=== PATIENT | male | born 1965 | race African-American/Black ===

== ENCOUNTER 2016-07-22 11:41 | Emergency (ER) | payer SELFPAY ==
[~2016-07-22] VITALS: Ht 167.6 cm; Wt 90.0 kg
[~2016-07-22 11:41] MED LIST: BACT800T5 PO; DICY1TAB26 PO; LOMO PO; PROM25SU8 PO; Z.0.NO CURRENT MEDS
[2016-07-22 11:42] VITALS: BP 125/75; PULSE 98; RESP 16; TEMP 98.1; O2SAT 99
--- NOTE | 2016-07-22 11:44 | PD ---
Physical Exam Time Seen by Provider: 11:43 Narrative 51 y/o male presents with 3 days of dizziness, cough, cp when he coughs, generalized weakness. Vital signs reviewed. Seen at triage desk. Awaiting bed placement. Data Data Last Documented VS Vital Signs Date Time Temp Pulse Resp B/P Pulse Ox O2 Delivery O2 Flow Rate FiO2 07/22/16 11:42 98.1 98 16 125/75 99 MDM Medical Record Reviewed: Yes Supervised Visit with LILIANE: Alvarez Paz July 22, 2016 11:44
[2016-07-22] MEDS ORDERED: MUCI30TA2 PO (13:31)
--- NOTE | 2016-07-22 14:12 | PD ---
HPI Chief Complaint: Cold / Flu Symptoms Time Seen by Provider: 13:30 Travel History International Travel<30 days: No Contact w/Intl Traveler<30days: No Traveled to known affect area: No History of Present Illness HPI Patient is a 51-year-old male presenting to emergency for evaluation of 4 days of cough with pleuritic chest pain. Patient's head nasal drainage, he denies any fevers, nausea, vomiting, abdominal pain, headache. He reports diarrhea, he states is gone once today. Patient is a smoker. PFSH Past Medical History Bipolar Disorder: Yes Anxiety: Yes Depression: Yes Cardiovascular Problems: Yes (MURMUR) Past Surgical History Other Surgery: Yes (ARTHROSCOPIC KNEE SURGERY 1991) Social History Alcohol Use: No Tobacco Use: Yes Substance Use: No Allergies-Medications (Allergen,Severity, Reaction): Coded Allergies: No Known Allergies (Verified , 07/22/16) Reported Meds & Prescriptions Reported Meds & Active Scripts Active Reported Mucinex DM (Dextromethorphan-Guaifenesin) 30-600 Mg Tab 2 Tab PO BID PRN Review of Systems Except as stated in HPI: all other systems reviewed are Neg General / Constitutional: No: Fever, Chills HENT: Positive: Congestion, No: Headaches Cardiovascular: No: Chest Pain or Discomfort Respiratory: Positive: Cough, Pleuritic Pain, No: Shortness of Breath Gastrointestinal: Positive: Diarrhea, No: Nausea, Vomiting, Abdominal Pain Genitourinary: No: Dysuria Neurologic: Positive: Dizziness Physical Exam Narrative GENERAL: Well-developed, well-nourished, alert gentleman. Resting comfortably in no acute distress. SKIN: Focused skin assessment warm/dry. HEAD: Atraumatic. Normocephalic. EYES: Pupils equal and round. No scleral icterus. No injection or drainage. ENT: No nasal bleeding or discharge. Mucous membranes pink and moist. Cobblestone appearance to posterior pharynx NECK: Trachea midline. No JVD. CARDIOVASCULAR: Regular rate and rhythm. No murmur appreciated. RESPIRATORY: No accessory muscle use. Clear to auscultation. Breath sounds equal bilaterally. GASTROINTESTINAL: Abdomen soft, non-tender, nondistended. Hepatic and splenic margins not palpable. MUSCULOSKELETAL: No obvious deformities. No clubbing. No cyanosis. No edema. NEUROLOGICAL: Awake and alert. No obvious cranial nerve deficits. Motor grossly within normal limits. Normal speech. PSYCHIATRIC: Appropriate mood and affect; insight and judgment normal. Data Data Last Documented VS Vital Signs Date Time Temp Pulse Resp B/P Pulse Ox O2 Delivery O2 Flow Rate FiO2 07/22/16 11:42 98.1 98 16 125/75 99 Orders Chest, Pa & Lat (07/22/16 ) [facility] Medical Decision Making Medical Screen Exam Complete: Yes Emergency Medical Condition: Yes Interpretation(s) Last Impressions Chest X-Ray 07/22/16 0000 Signed Impressions: Service Date/Time: Friday, July 22, 2016 14:11 - CONCLUSION: No acute disease. Oliver Wright MD Vital Signs Date Time Temp Pulse Resp B/P Pulse Ox O2 Delivery O2 Flow Rate FiO2 07/22/16 11:42 98.1 98 16 125/75 99 Differential Diagnosis Bronchitis versus pneumonia versus viral syndrome versus upper respiratory infection versus other Narrative Course Patient is a 51-year-old male presenting to emergency department evaluation of cough and pleuritic pain associated with the coughing. Patient's vital signs are stable, chest x-ray ordered and pending. Patient ambulatory in the emergency department. Patient's vital signs are stable, chest x-ray shows no acute disease. Patient be given prescriptions for azithromycin, Tessalon Perles, and ibuprofen. He is encouraged to follow-up with his primary doctor. He was encouraged to return to emergency department for any new or worsening symptoms. Patient verbalized understanding of discharge instructions. Patient is stable for discharge. Additionally patient was advised to avoid cigarette smoking. Diagnosis Primary Impression: Acute bronchitis Qualified Code: J20.9 - Acute bronchitis, unspecified organism Referrals: [facility] Primary Care Physician Patient Instructions: Acute Bronchitis (ED), General Instructions Additional Instructions: Follow-up with your primary doctor Complete full course of antibiotics as prescribed Avoid tobacco use Returned to emergency department for any new or worsening symptoms Med/Other Pt SpecificInfo: Prescription(s) given Scripts Ibuprofen 800 Mg [id number] Mg PO Q6HR PRN (PAIN) #40 TAB Ref 0 Prov:Maritza Babin 07/22/16 Benzonatate (Tessalon Perles)100 Mg [id number] Mg PO TID PRN (COUGH) 3 Days Ref 0 Prov:Maritza Babin 07/22/16 Azithromycin 250 Mg [id number] Mg PO DIRECTED #6 TAB Ref 0 Take 2 tabs (500 mg) on day 1 then 1 tab daily x 4 days. Prov:Maritza Babin 07/22/16 Disposition: 01 DISCHARGE HOME Condition: Stable Maritza Babin July 22, 2016 14:12
--- NOTE | 2016-07-22 14:56 | RADRPT ---
EXAM DATE/TIME: 07/22/2016 14:11 [facility] COMPARISON: No previous studies available for comparison. INDICATIONS : Cough and shortness of breath. MEDICAL HISTORY : None. SURGICAL HISTORY : None. ENCOUNTER: Initial ACUITY: 4 - 6 days PAIN SCORE: 8/10 LOCATION: Bilateral chest FINDINGS: PA and lateral views of the chest demonstrate the lungs to be symmetrically aerated without evidence of mass, infiltrate or effusion. The cardiomediastinal contours are unremarkable. Osseous structure s are intact. CONCLUSION: No acute disease. Oliver Wright MD on July 22, 2016 at 14:54 Board Certified Radiologist. This report was verified electronically.
[2016-07-22] MEDS ORDERED: IBUP800T23 PO (15:30)
[2016-07-22] MEDS ORDERED: BENZ100 PO (15:30)
[2016-07-22] MEDS ORDERED: AZIT250T3 PO (15:30)
== END 2016-07-22 15:52 | disposition home or self-care (01) ==
LOC: NEPD 11:41
DX: J20.9 Acute bronchitis, unspecified (principal); F17.210 Nicotine dependence, cigarettes, uncomplicated
CPT/HCPCS: 71020; 99284

== ENCOUNTER 2016-09-10 21:15 | Emergency (ER) | payer SELFPAY ==
[~2016-09-10 21:15] MED LIST changes: +AZIT250T3 PO; -BACT800T5 PO; +BENZ100 PO; -DICY1TAB26 PO; +IBUP800T23 PO; -LOMO PO; +MUCI30TA2 PO; -PROM25SU8 PO; -Z.0.NO CURRENT MEDS
[2016-09-10 21:17] VITALS: BP 146/92; PULSE 98; RESP 16; TEMP 98.9; O2SAT 97
[2016-09-10] MEDS ORDERED: SODIUM CHLOR 0.9% 1000 ML INJ 1,000 ML IV SCH (21:50)
--- NOTE | 2016-09-10 21:55 | PD ---
HPI Chief Complaint: GI Complaint Time Seen by Provider: 21:46 Travel History International Travel<30 days: No Contact w/Intl Traveler<30days: No Traveled to known affect area: No History of Present Illness HPI 51-year-old male here for evaluation of abdominal pain and nausea. Patient reports that the symptoms have been going on for last couple of months, worse today. Abdominal pain is mainly epigastric and periumbilical, described as sharp/pressure, moderate He states that he becomes nauseous and dry heaves without vomiting. No diarrhea. No history of abdominal surgeries. No urinary symptoms. No chest pain or dyspnea. PFSH Past Medical History Bipolar Disorder: Yes Anxiety: Yes Depression: Yes Cardiovascular Problems: Yes (MURMUR) Past Surgical History Other Surgery: Yes (ARTHROSCOPIC KNEE SURGERY 1991) Social History Alcohol Use: No Tobacco Use: Yes Substance Use: No Allergies-Medications (Allergen,Severity, Reaction): Coded Allergies: No Known Allergies (Verified , 09/10/16) Reported Meds & Prescriptions Reported Meds & Active Scripts Active Ibuprofen 800 Mg Tab 800 Mg PO Q6HR PRN Tessalon Perles (Benzonatate) 100 Mg Cap 200 Mg PO TID PRN 3 Days Azithromycin 250 Mg Tab 250 Mg PO DIRECTED Take 2 tabs (500 mg) on day 1 then 1 tab daily x 4 days. Reported Mucinex DM (Dextromethorphan-Guaifenesin) 30-600 Mg Tab 2 Tab PO BID PRN Review of Systems Except as stated in HPI: all other systems reviewed are Neg Physical Exam Narrative GENERAL: Well-developed, well-nourished, comfortably watching TV, no acute distress. SKIN: Focused skin assessment warm/dry. HEAD: Atraumatic. Normocephalic. EYES: Pupils equal and round. No scleral icterus. No injection or drainage. ENT: Mucous membranes pink and moist. NECK: Trachea midline. No JVD. CARDIOVASCULAR: Regular rate and rhythm. RESPIRATORY: No accessory muscle use. Clear to auscultation. Breath sounds equal bilaterally. GASTROINTESTINAL: Abdomen soft, nondistended. Mild periumbilical and epigastric tenderness without peritoneal signs. Normal bowel sounds. No hernias. MUSCULOSKELETAL: No obvious deformities. No clubbing. No cyanosis. No edema. NEUROLOGICAL: Awake and alert. No obvious cranial nerve deficits. Motor grossly within normal limits. Normal speech. PSYCHIATRIC: Appropriate mood and affect; insight and judgment normal. Data Data Last Documented VS Vital Signs Date Time Temp Pulse Resp B/P Pulse Ox O2 Delivery O2 Flow Rate FiO2 09/10/16:17 98.9 98 16 146/92 97 Room Air Orders Complete Blood Count With Diff (09/10/16 21:50) Comprehensive Metabolic Panel (09/10/16 21:50) Lipase (09/10/16 21:50) Ct Abd/Pel W Iv Contrast(Rout) (09/10/16 21:50) Iv Access Insert/Monitor (09/10/16 21:50) Ecg Monitoring (09/10/16 21:50) Oximetry (09/10/16 21:50) Ondansetron Inj (Zofran Inj) (09/10/16 22:00) Pantoprazole Inj (Protonix Inj) (09/10/16 22:00) Sodium Chlor 0.9% 1000 Ml Inj (Ns 1000 M (09/10/16 21:50) Sodium Chloride 0.9% Flush (Ns Flush) (09/10/16 22:00) Electrocardiogram (09/10/16 21:50) Al-Mag Hy-Si 40-40-4 Mg/Ml Liq (Mag-Al P (09/10/16 22:00) Lidocaine 2% Viscous (Xylocaine 2% Visco (09/10/16 22:00) Iohexol 350 Inj (Omnipaque 350 Inj) (09/10/16 23:46) Ketorolac Inj (Toradol Inj) (09/11/16 00:00) Labs Laboratory Tests Test 09/10/16 22:20 White Blood Count 8.6 TH/MM3 Red Blood Count 4.33 MIL/MM3 Hemoglobin 13.4 GM/DL Hematocrit 38.0 % Mean Corpuscular Volume 87.9 FL Mean Corpuscular Hemoglobin 31.0 PG Mean Corpuscular Hemoglobin 35.2 % Concent Red Cell Distribution Width 13.4 % Platelet Count 286 TH/MM3 Mean Platelet Volume 7.2 FL Neutrophils (%) (Auto) 58.7 % Lymphocytes (%) (Auto) 31.6 % Monocytes (%) (Auto) 7.2 % Eosinophils (%) (Auto) 1.8 % Basophils (%) (Auto) 0.7 % Neutrophils # (Auto) 5.1 TH/MM3 Lymphocytes # (Auto) 2.7 TH/MM3 Monocytes # (Auto) 0.6 TH/MM3 Eosinophils # (Auto) 0.2 TH/MM3 Basophils # (Auto) 0.1 TH/MM3 CBC Comment DIFF FINAL Differential Comment Sodium Level 142 MEQ/L Potassium Level 3.5 MEQ/L Chloride Level 107 MEQ/L Carbon Dioxide Level 23.3 MEQ/L Anion Gap 12 MEQ/L Blood Urea Nitrogen 15 MG/DL Creatinine 1.16 MG/DL Estimat Glomerular Filtration 80 ML/MIN Rate Random Glucose 92 MG/DL Calcium Level 8.9 MG/DL Total Bilirubin 0.3 MG/DL Aspartate Amino Transf 26 U/L (AST/SGOT) Alanine Aminotransferase 43 U/L (ALT/SGPT) Alkaline Phosphatase 74 U/L Total Protein 7.8 GM/DL Albumin 3.9 GM/DL Lipase 125 U/L MDM Medical Decision Making Medical Screen Exam Complete: Yes Emergency Medical Condition: Yes Medical Record Reviewed: Yes Differential Diagnosis Gastritis, peptic ulcer disease, pancreatitis, hepatobiliary disease, colitis, appendicitis, Narrative Course Initial vital signs show heart rate 90, blood pressure 146/92, pulse ox 97% on room air, oral temp of 98.9F. CBC is unremarkable. CMP is unremarkable. Lipase is 125. CT abdomen pelvis: CONCLUSION: 1. There is wall thickening throughout the colon which can be seen with colitis. 2. Diverticulosis. 3. Numerous subcentimeter hepatic low densities and renal low densities likely benign. 4. Stable left adrenal lesion likely benign adenoma. Patient was made aware of all findings. He is resting comfortably. Tenderness is mainly epigastric. There are no peritoneal signs on exam. He was provided a copy of his CT abdomen pelvis report. He will be started on Cipro and Flagyl. He is stable for discharge home with outpatient follow-up. I will given the name of the customer care specialist health professional with whom to follow-up with this week. He states that he is from [place] and recently moved here and does not have insurance or a local physician. I will give him the information to the [facility] where he can also follow-up with as an outpatient. Diagnosis Primary Impression: Colitis Referrals: Sue Hooks MD 3 days [facility] 3 days Primary Care Physician 3 days Additional Instructions: Follow-up with a primary care physician this week. Follow-up with gastric urologist Dr. Hooks or a customer care specialist of your choice this week. Take antibiotic as prescribed. Return to the emergency department for worsening symptoms or any other concerns. Scripts Hydrocodone-Acetaminophen (Lortab)5-325 Mg Tab1 Tab PO Q6H PRN (PAIN) #15 TAB Ref 0 Prov:Gerald Crews MD 09/11/16 Metronidazole (Flagyl)500 Mg [id number] Mg PO BID 10 Days Ref 0 Prov:Gerald Crews MD 09/11/16 Ciprofloxacin (Cipro)500 Mg [id number] Mg PO BID 10 Days Ref 0 Prov:Gerald Crews MD 09/11/16 Disposition: 01 DISCHARGE HOME Condition: Stable Gerald Crews MD Sep 10, 2016 21:55
[2016-09-10] MEDS ORDERED: ONDANSETRON HCL 4 MG/2 ML VIAL IVP ONE (22:00)
[2016-09-10] MEDS ORDERED: SODIUM CHLORIDE 0.9% FLUSH 10 ML FLUSH IV FLUSH PRN (22:00)
[2016-09-10] MEDS ORDERED: LIDOCAINE VISCOUS 2% SOLN 15 ML UDC PO ONE (22:00)
[2016-09-10] MEDS ORDERED: ALUMINUM/MAGNESIUM/SIMETH 30 ML CUP PO ONE (22:00)
[2016-09-10] MEDS ORDERED: PANTOPRAZOLE SODIUM 40 MG VIAL IVP ONE (22:00)
[2016-09-10 22:36] LABS: AUTOMATED NEUTROPHIL # 5.1 TH/MM3 (1.8-7.7); BASOPHIL # 0.1 TH/MM3 (0-0.2); BASOPHIL % 0.7 % (0.0-2.0); EOSINOPHIL # 0.2 TH/MM3 (0-0.4); EOSINOPHIL % 1.8 % (0.0-4.0); HEMO FLAGS DIFF FINAL; LYMPH % 31.6 % (9.0-44.0); LYMPHOCYTE # 2.7 TH/MM3 (1.0-4.8); MEAN CELL VOLUME 87.9 FL (80.0-100.0); MEAN CORPUSCULAR HGB CONC 35.2 % (32.0-36.0); MONO % 7.2 % (0.0-8.0); NEUT % 58.7 % (16.0-70.0); PLATELET COUNT 286 TH/MM3 (150-450); RED BLOOD COUNT 4.33 MIL/MM3 (4.50-5.90); RED CELL DISTRIBUTION WIDTH 13.4 % (11.6-17.2); WHITE BLOOD COUNT 8.6 TH/MM3 (4.0-11.0)
[2016-09-10 22:46] LABS: ALT (GPT) 43 U/L (12-78)
[2016-09-10 22:49] LABS: ALKALINE PHOSPHATASE 74 U/L (45-117); TOTAL BILIRUBIN ADULT 0.3 MG/DL (0.2-1.0)
[2016-09-10 22:52] LABS: ANION GAP 12 MEQ/L (5-15); AST (GOT) 26 U/L (15-37); BICARBONATE 23.3 MEQ/L (21.0-32.0); BLOOD UREA NITROGEN 15 MG/DL (7-18); CHLORIDE 107 MEQ/L (98-107); GLOMERULAR FILTRATION RATE 80 ML/MIN (>89); POTASSIUM 3.5 MEQ/L (3.5-5.1); SODIUM (NA) 142 MEQ/L (136-145)
[2016-09-10 23:45] VITALS: RESP 20; O2SAT 98
[2016-09-10] MEDS ORDERED: IOHEXOL 350 MG/ML 10 ML VIAL (for RAD DIAG) IV ONE (23:46)
--- NOTE | 2016-09-10 23:53 | RADRPT ---
EXAM DATE/TIME: 09/10/2016 23:33 [facility] COMPARISON: CT ABDOMEN & PELVIS W CONTRAST, February 09, 2015, 17:05. INDICATIONS : Upper quadrant pain with nausea, and diarrhea. IV CONTRAST: 90 cc Omnipaque 350 (iohexol) IV ORAL CONTRAST: No oral contrast ingested. RADIATION DOSE: 10.70 CTDIvol (mGy) MEDICAL HISTORY : None SURGICAL HISTORY : Umbilical hernia repair. ENCOUNTER: Initial ACUITY: 2 months PAIN SCALE: 1/10 LOCATION: upper quadrant TECHNIQUE: Volumetric scanning of the abdomen and pelvis was performed. Using automated exposure control and ad justment of the mA and/or kV according to patient size, radiation dose was kept as low as reasonably achievable to obtain optimal diagnostic quality images. DICOM format image data is available electro nically for review and comparison. FINDINGS: LOWER LUNGS: The visualized lower lungs are clear. LIVER: Homogeneous density without lesion. There is no dilation of the biliary tree. No calcified gallston es. Multiple subcentimeter low densities. SPLEEN: Normal size without lesion. PANCREAS: Within normal limits. KIDNEYS: Normal in size and shape. There is no mass, stone or hydronephrosis. Subcentimeter low densities. ADRENAL GLANDS: Right adrenal gland within normal limits. Left adrenal lesion is unchanged. VASCULAR: There is no aortic aneurysm. BOWEL/MESENTERY: There is wall thickening throughout the colon which can be seen with colitis. A few scattered diverti cula. Appendix is normal.. There is no free intraperitoneal air or fluid. ABDOMINAL WALL: Within normal limits. RETROPERITONEUM: There is no lymphadenopathy. BLADDER: No wall thickening or mass. REPRODUCTIVE: Within normal limits. INGUINAL: There is no lymphadenopathy or hernia. MUSCULOSKELETAL: Within normal limits for patient age. CONCLUSION: 1. There is wall thickening throughout the colon which can be seen with colitis. 2. Diverticulosis. 3. Numerous subcentimeter hepatic low densities and renal low densities likely benign. 4. Stable left adrenal lesion likely benign adenoma. Andrew Mendoza MD on September 10, 2016 at 23:48 Board Certified Radiologist. This report was verified electronically.
[2016-09-11] MEDS ORDERED: MORPHINE SULFATE 4 MG/ML INJ IV PUSH ONE
[2016-09-11] MEDS ORDERED: KETOROLAC TROMETHAMINE 30 MG/ML (IVP) VIAL IV PUSH ONE
[2016-09-11] MEDS ORDERED: metroNIDAZOLE 500 MG TAB PO ONE
[2016-09-11] MEDS ORDERED: CIPROFLOXACIN 500 MG TAB PO ONE
[2016-09-11] MEDS ORDERED: HYDR-3533 PO (00:04)
[2016-09-11] MEDS ORDERED: CIPR-9 PO (00:04)
[2016-09-11] MEDS ORDERED: METR-1 PO (00:04)
[2016-09-11 01:00] VITALS: BP 140/89; PULSE 72; RESP 17; O2SAT 97
[2016-09-11 01:19] VITALS: RESP 17
--- NOTE | 2016-09-11 16:26 | EKG ---
Date Performed: 09/10/2016 Time Performed: 23:01:02 PTAGE: 51 years EKG: Sinus rhythm POSSIBLE RIGHT VENTRICULAR CONDUCTION DELAY SEPTAL MYOCARDIAL INFARCTION ABNORMAL ECG PREVIOUS TRACING 04/09/2007 @ 18.28.32 Compared to prior tracing no significant change DOCTOR: Kris Rees Interpretating Date/Time 09/11/2016 16:24:57
== END 2016-09-11 01:30 | disposition home or self-care (01) ==
LOC: NEPD 21:15
DX: K52.9 Noninfective gastroenteritis and colitis, unspecified (principal); R94.31 Abnormal electrocardiogram [ECG] [EKG]
CPT/HCPCS: 74177; 80053; 83690; 85025; 93005; 96361; 96374; 96375; 99285; C9113; J2270; J2405; J7030; Q9967

== ENCOUNTER 2016-12-05 20:49 | Emergency (ER) | payer SELFPAY ==
[~2016-12-05] VITALS: Ht 167.6 cm; Wt 95.0 kg
[~2016-12-05 20:49] MED LIST changes: -AZIT250T3 PO; -BENZ100 PO; +CIPR-9 PO; +HYDR-3533 PO; -IBUP800T23 PO; +METR-1 PO; -MUCI30TA2 PO
[2016-12-05 20:52] VITALS: BP 166/87; PULSE 78; RESP 16; TEMP 98.2; O2SAT 96
== END 2016-12-05 21:20 | disposition left against medical advice (07) ==
LOC: NED 20:49
DX: R22.0 Localized swelling, mass and lump, head (principal); Z53.21 Procedure and treatment not carried out due to patient leaving prior to being seen by health care provider
CPT/HCPCS: 99281

== ENCOUNTER 2017-01-26 19:48 | Observation (INO) | payer SELFPAY ==
[~2017-01-26] VITALS: Ht 167.6 cm; Wt 94.5 kg
[2017-01-26 19:51] VITALS: BP 143/77; PULSE 74; RESP 16; TEMP 98.6; O2SAT 99
[2017-01-26] MEDS ORDERED: ASPIRIN 81 MG CHEW TAB CHEW ONE (20:30)
--- NOTE | 2017-01-26 20:33 | PD ---
HPI Chief Complaint: Chest Pain Time Seen by Provider: 20:08 Travel History International Travel<30 days: No Contact w/Intl Traveler<30days: No Traveled to known affect area: No History of Present Illness HPI Patient is a 51-year-old male presenting to the emergency department for evaluation chest pain. Patient states that he was driving approximately 1 hour prior to arrival when he experienced chest pressure as if something was sitting on his chest and he had radiation to his arms. He states that he became short of breath and clammy. This initial episode lasted approximately 5 minutes. He then resumed driving and had a second episode approximately 30 minutes prior to arrival which prompted his visit to the emergency department. Patient also reports shortness of breath, he endorses 1 pack per day tobacco use. He denies any significant past medical history however he does not follow up with her primary doctor routinely. He has been hospitalized in the past for chest pain in [place] and [place]. PFSH Past Medical History Bipolar Disorder: Yes Anxiety: Yes Depression: Yes Cardiovascular Problems: Yes (MURMUR) Chest Pain: Yes Psychiatric: Yes Past Surgical History Other Surgery: Yes (ARTHROSCOPIC KNEE SURGERY 1991) Social History Alcohol Use: Yes (ocasionally) Tobacco Use: Yes (1 pck/day) Substance Use: No Allergies-Medications (Allergen,Severity, Reaction): Coded Allergies: No Known Allergies (Verified Adverse Reaction, Unknown, 01/26/17) Reported Meds & Prescriptions Reported Meds & Active Scripts Active Lortab (Hydrocodone-Acetaminophen) 5-325 Mg Tab 1 Tab PO Q6H PRN Flagyl (Metronidazole) 500 Mg Tab 500 Mg PO BID 10 Days Cipro (Ciprofloxacin HCl) 500 Mg Tab 500 Mg PO BID 10 Days Review of Systems Except as stated in HPI: all other systems reviewed are Neg Eyes: No: Blurred Vision HENT: No: Headaches Cardiovascular: Positive: Chest Pain or Discomfort, Diaphoresis Respiratory: Positive: Shortness of Breath Gastrointestinal: No: Nausea, Abdominal Pain Physical Exam Narrative GENERAL: Well-developed, well-nourished, alert male. Resting comfortably in no acute distress. SKIN: Warm and dry. HEAD: Atraumatic. Normocephalic. EYES: Pupils equal and round. No scleral icterus. No injection or drainage. ENT: No nasal bleeding or discharge. Mucous membranes pink and moist. NECK: Trachea midline. No JVD. CARDIOVASCULAR: Regular rate and rhythm. 2/6 systolic murmur RESPIRATORY: No accessory muscle use. Clear to auscultation. Breath sounds equal bilaterally. GASTROINTESTINAL: Abdomen soft, non-tender, nondistended. Hepatic and splenic margins not palpable. MUSCULOSKELETAL: Extremities without clubbing, cyanosis, or edema. No obvious deformities. NEUROLOGICAL: Awake and alert. No obvious cranial nerve deficits. Motor grossly within normal limits. Five out of 5 muscle strength in the arms and legs. Normal speech. PSYCHIATRIC: Appropriate mood and affect; insight and judgment normal. Data Data Last Documented VS Vital Signs Date Time Temp Pulse Resp B/P (MAP) Pulse Ox O2 Delivery O2 Flow Rate FiO2 01/26/17 21:30 66 18 135/55 (81) 99 Room Air 01/26/17 19:51 98.6 Orders Orders Electrocardiogram (01/26/17 20:03) Ckmb (Isoenzyme) Profile (01/26/17 20:03) Complete Blood Count With Diff (01/26/17 20:03) Magnesium (Mg) (01/26/17 20:03) Prothrombin Time / Inr (Pt) (01/26/17 20:03) Act Partial Throm Time (Ptt) (01/26/17 20:03) Troponin I (01/26/17 20:03) Lipase (01/26/17 20:03) Chest, Single Ap (01/26/17 20:03) Comprehensive Metabolic Panel (01/26/17 20:25) Aspirin Chew (Aspirin Chew) (01/26/17 20:30) CKMB (01/26/17 20:25) CKMB% (01/26/17 20:25) Activity Bed Rest With Brp (01/26/17 21:40) Vital Signs (Adult) Q4H (01/26/17 21:40) Cardiac Rhythm .As Directed (01/26/17 21:40) Notify Dr: Other .PRN (01/26/17 21:40) Notify Dr. Parameters (01/26/17 21:40) Diet Npo (01/27/17 Breakfast) Ckmb (Isoenzyme) Profile (01/26/17 21:40) Ckmb (Isoenzyme) Profile (01/27/17 00:40) Troponin I (01/26/17 21:40) Troponin I (01/27/17 00:40) Electrocardiogram (01/26/17 21:40) Electrocardiogram (01/27/17 00:40) ^ Obtain (01/26/17 21:40) Sodium Chloride 0.9% Flush (Ns Flush) (01/26/17 21:45) Sodium Chloride 0.9% Flush (Ns Flush) (01/27/17 09:00) Acetaminophen (Tylenol) (01/26/17 21:45) Acetamin-Hydrocod 325-7.5 Mg ([place] 7.5 (01/26/17 21:45) Morphine Inj (Morphine Inj) (01/26/17 21:45) Ondansetron Inj (Zofran Inj) (01/26/17 21:45) Pantoprazole (Protonix) (01/27/17 09:00) Nitroglycerin Sl (Nitrostat Sl) (01/26/17 21:45) Aspirin (Aspirin) (01/27/17 09:00) [employer] / Telemetry [email or web address] (01/26/17 21:40) Admit Order (Ed Use Only) (01/26/17 21:40) Labs Laboratory Tests Test 01/26/17 20:25 White Blood Count 7.7 TH/MM3 Red Blood Count 4.20 MIL/MM3 Hemoglobin 12.7 GM/DL Hematocrit 36.9 % Mean Corpuscular Volume 87.7 FL Mean Corpuscular Hemoglobin 30.3 PG Mean Corpuscular Hemoglobin Concent 34.5 % Red Cell Distribution Width 13.4 % Platelet Count 276 TH/MM3 Mean Platelet Volume 7.7 FL Neutrophils (%) (Auto) 57.7 % Lymphocytes (%) (Auto) 31.1 % Monocytes (%) (Auto) 6.6 % Eosinophils (%) (Auto) 3.6 % Basophils (%) (Auto) 1.0 % Neutrophils # (Auto) 4.4 TH/MM3 Lymphocytes # (Auto) 2.4 TH/MM3 Monocytes # (Auto) 0.5 TH/MM3 Eosinophils # (Auto) 0.3 TH/MM3 Basophils # (Auto) 0.1 TH/MM3 CBC Comment DIFF FINAL Differential Comment Prothrombin Time 10.0 SEC Prothromb Time International Ratio 0.9 RATIO Activated Partial Thromboplast Time 22.6 SEC Blood Urea Nitrogen 14 MG/DL Creatinine 1.48 MG/DL Random Glucose 113 MG/DL Total Protein 7.0 GM/DL Albumin 3.4 GM/DL Calcium Level 8.9 MG/DL Alkaline Phosphatase 78 U/L Aspartate Amino Transf (AST/SGOT) 23 U/L Alanine Aminotransferase (ALT/SGPT) 37 U/L Total Bilirubin 0.2 MG/DL Sodium Level 143 MEQ/L Potassium Level 3.4 MEQ/L Chloride Level 109 MEQ/L Carbon Dioxide Level 23.0 MEQ/L Anion Gap 11 MEQ/L Estimat Glomerular Filtration Rate 61 ML/MIN Magnesium Level 1.8 MG/DL Total Creatine Kinase 139 U/L Creatine Kinase MB 1.4 NG/ML Troponin I LESS THAN 0.02 NG/ML Lipase 239 U/L MDM Medical Decision Making Medical Screen Exam Complete: Yes Emergency Medical Condition: Yes Interpretation(s) Last Impressions Chest X-Ray 01/26/172002 Signed Impressions: Service Date/Time: Thursday, January 26, 2017 20:11 - CONCLUSION: Normal examination. Mo Nichols Jr., MD Laboratory Tests Test 01/26/17 20:25 White Blood Count 7.7 TH/MM3 Red Blood Count 4.20 MIL/MM3 Hemoglobin 12.7 GM/DL Hematocrit 36.9 % Mean Corpuscular Volume 87.7 FL Mean Corpuscular Hemoglobin 30.3 PG Mean Corpuscular Hemoglobin Concent 34.5 % Red Cell Distribution Width 13.4 % Platelet Count 276 TH/MM3 Mean Platelet Volume 7.7 FL Neutrophils (%) (Auto) 57.7 % Lymphocytes (%) (Auto) 31.1 % Monocytes (%) (Auto) 6.6 % Eosinophils (%) (Auto) 3.6 % Basophils (%) (Auto) 1.0 % Neutrophils # (Auto) 4.4 TH/MM3 Lymphocytes # (Auto) 2.4 TH/MM3 Monocytes # (Auto) 0.5 TH/MM3 Eosinophils # (Auto) 0.3 TH/MM3 Basophils # (Auto) 0.1 TH/MM3 CBC Comment DIFF FINAL Differential Comment Prothrombin Time 10.0 SEC Prothromb Time International Ratio 0.9 RATIO Activated Partial Thromboplast Time 22.6 SEC Blood Urea Nitrogen 14 MG/DL Creatinine 1.48 MG/DL Random Glucose 113 MG/DL Total Protein 7.0 GM/DL Albumin 3.4 GM/DL Calcium Level 8.9 MG/DL Alkaline Phosphatase 78 U/L Aspartate Amino Transf (AST/SGOT) 23 U/L Alanine Aminotransferase (ALT/SGPT) 37 U/L Total Bilirubin 0.2 MG/DL Sodium Level 143 MEQ/L Potassium Level 3.4 MEQ/L Chloride Level 109 MEQ/L Carbon Dioxide Level 23.0 MEQ/L Anion Gap 11 MEQ/L Estimat Glomerular Filtration Rate 61 ML/MIN Magnesium Level 1.8 MG/DL Total Creatine Kinase 139 U/L Creatine Kinase MB 1.4 NG/ML Troponin I LESS THAN 0.02 NG/ML Lipase 239 U/L Vital Signs Date Time Temp Pulse Resp B/P (MAP) Pulse Ox O2 Delivery O2 Flow Rate FiO2 01/26/17 20:18 (99) 01/26/17 20:16 99 Room Air 01/26/17 19:51 98.6 74 16 143/77 (99) 99 Differential Diagnosis ACS versus [place] versus myocardial infarction versus hypoglycemia versus metabolic abdomen only versus other Narrative Course Patient is a 51-year-old male presenting to emergency evaluation of chest pain. Patient does not have a primary physician notes he received routine medical care. He is a one pack per day smoker. Patient's vital signs are stable, labs and imaging ordered and pending. IV access established patient placed on potline monitor. Chest x-ray which is read by the radiologist as no acute disease CBC with no acute abnormality Chemistry with a potassium of 3.4, creatinine 1.48, initial set of cardiac enzymes are negative. EKG was reviewed by attending physician. Due to patient's presentation, risk factors he would place in the chest pain center to rule out acute coronary syndrome. Patient and spouse are agreeable to plan. Admit orders place. Diagnosis Primary Impression: Chest pain Qualified Codes: R07.9 - Chest pain, unspecified Admitting Information Admitting Physician Requests: Observation Condition: Stable Maritza Babin Jan 26, 2017 20:33
--- NOTE | 2017-01-26 20:36 | RADRPT ---
EXAM DATE/TIME: 01/26/2017 20:11 [place] COMPARISON: No previous studies available for comparison. INDICATIONS : Shortness of breath,chest pain. MEDICAL HISTORY : None. SURGICAL HISTORY : None. ENCOUNTER: Initial ACUITY: 1 day PAIN SCORE: 0/10 LOCATION: Bilateral chest FINDINGS: A single view of the chest demonstrates the lungs to be symmetrically aerated without evidence of mas s, infiltrate or effusion. The cardiomediastinal contours are unremarkable. Osseous structures are intact. CONCLUSION: Normal examination. Mo Nichols Jr., MD on January 26, 2017 at 20:33 Board Certified Radiologist. This report was verified electronically.
[2017-01-26 20:53] LABS: AUTOMATED NEUTROPHIL # 4.4 TH/MM3 (1.8-7.7); BASOPHIL # 0.1 TH/MM3 (0-0.2); EOSINOPHIL # 0.3 TH/MM3 (0-0.4); EOSINOPHIL % 3.6 % (0.0-4.0); HEMATOCRIT 36.9 % (39.0-51.0); HEMO FLAGS DIFF FINAL; LYMPH % 31.1 % (9.0-44.0); LYMPHOCYTE # 2.4 TH/MM3 (1.0-4.8); MEAN CELL VOLUME 87.7 FL (80.0-100.0); MEAN CORPUSCULAR HEMOGLOBIN 30.3 PG (27.0-34.0); MEAN CORPUSCULAR HGB CONC 34.5 % (32.0-36.0); MONO % 6.6 % (0.0-8.0); NEUT % 57.7 % (16.0-70.0); PLATELET COUNT 276 TH/MM3 (150-450); RED CELL DISTRIBUTION WIDTH 13.4 % (11.6-17.2); WHITE BLOOD COUNT 7.7 TH/MM3 (4.0-11.0)
[2017-01-26 21:05] LABS: APTT (PATIENT) 22.6 SEC (24.3-30.1); INTERNATIONAL NORMALIZED RATIO 0.9 RATIO
[2017-01-26 21:14] LABS: ALT (GPT) 37 U/L (12-78)
[2017-01-26 21:17] LABS: ALKALINE PHOSPHATASE 78 U/L (45-117); CREATINE KINASE 139 U/L (39-308); TOTAL BILIRUBIN ADULT 0.2 MG/DL (0.2-1.0)
[2017-01-26 21:28] LABS: ANION GAP 11 MEQ/L (5-15); AST (GOT) 23 U/L (15-37); BLOOD UREA NITROGEN 14 MG/DL (7-18); CHLORIDE 109 MEQ/L (98-107); GLOMERULAR FILTRATION RATE 61 ML/MIN (>89); POTASSIUM 3.4 MEQ/L (3.5-5.1); SODIUM (NA) 143 MEQ/L (136-145)
[2017-01-26 21:29] LABS: CKMB 1.4 NG/ML (0.5-3.6); MAGNESIUM 1.8 MG/DL (1.5-2.5)
[2017-01-26 21:30] VITALS: BP 135/55; PULSE 66; RESP 18; O2SAT 99
[2017-01-26] MEDS ORDERED: NITROGLYCERIN 0.4 MG SL 25 TABS/BTL SL PRN (21:45)
[2017-01-26] MEDS ORDERED: SODIUM CHLORIDE 0.9% FLUSH 10 ML FLUSH IV FLUSH PRN (21:45)
[2017-01-26] MEDS ORDERED: ACETAMINOPHEN/HYDROcodone 325 MG/7.5 MG TAB PO PRN (21:45)
[2017-01-26] MEDS ORDERED: MORPHINE SULFATE 4 MG/ML INJ IV PUSH PRN (21:45)
[2017-01-26] MEDS ORDERED: ACETAMINOPHEN 500 MG CPLT PO PRN (21:45)
[2017-01-26] MEDS ORDERED: ONDANSETRON HCL 4 MG/2 ML VIAL IV PUSH PRN (21:45)
[2017-01-26 23:00] VITALS: BP 131/67; PULSE 61; RESP 18; TEMP 97.9; O2SAT 99
[2017-01-27 00:13] LABS: CREATINE KINASE 124 U/L (39-308)
[2017-01-27 01:15] VITALS: PULSE 97
[2017-01-27 03:20] VITALS: BP 145/77; PULSE 62; RESP 18; TEMP 98.1; O2SAT 99
[2017-01-27 03:46] LABS: CREATINE KINASE 119 U/L (39-308)
[2017-01-27 08:00] VITALS: PULSE 89
[2017-01-27 08:01] VITALS: BP 133/75; PULSE 64; RESP 21; TEMP 98; O2SAT 98
[2017-01-27] MEDS ORDERED: PANTOPRAZOLE SOD 40 MG DELAYED RELEASE TAB PO SCH (09:00)
[2017-01-27] MEDS ORDERED: SODIUM CHLORIDE 0.9% FLUSH 10 ML FLUSH IV FLUSH SCH (09:00)
[2017-01-27] MEDS ORDERED: ASPIRIN 325 MG TAB PO SCH (09:00)
--- NOTE | 2017-01-27 10:42 | HHI.DCPOC ---
Discharge Care Plan Diagnosis: (1) Tobacco abuse (2) Chest pain Goals to Promote Your Health * To prevent worsening of your condition and complications * To maintain your health at the optimal level Directions to Meet Your Goals Take your medications as prescribed Follow your dietary instruction Follow activity as directed Keep your appointments as scheduled Take your immunizations and boosters as scheduled If your symptoms worsen call your PCP, if no PCP go to Urgent Care Center or Emergency Room Smoking is Dangerous to Your Health. Avoid second hand smoke Call the 24-hour hour crisis hotline for domestic abuse at Vinicius Menjivar Jan 27, 2017 10:42
--- NOTE | 2017-01-27 10:47 | HHI.HP ---
HPI Primary Care Physician No Primary Care Physician Chief Complaint Chest pain History of Present Illness This is a 51-year-old male that presents to ED with a complaint of chest discomfort that began yesterday morning feeling lightheaded and with the discomfort as someone sitting on his chest. It lasted about 4 minutes but then it recurred a little later. No shortness of breath, nausea, or diaphoresis. Found nothing in particular bring on the discomfort. Denies history of CAD. Denies recent illness. Denies fevers or chills. Currently denies any chest discomfort. Review of Systems General: Patient denies fevers, chills recent, and recent travel HEENT: Patient denies headache, sore throat, difficulty swallowing. Cardiovascular: Has the chest discomfort as mentioned above. Denies sensation of heart beating rapidly or irregularly. No syncope. Denies diaphoresis. Respiratory: Denies shortness of breath or inspirational chest discomfort. Denies coughing wheezing or hemoptysis. GI: Patient denies nausea, vomiting, diarrhea, abdominal pain, bloody stools. Musculoskeletal: Patient denies joint pain or edema. Denies calf pain or edema. Neurovascular: Patient denies numbness, tingling, weakness in extremities. Denies headache. Endocrine: Denies polyuria and polydipsia. Hematologic: Denies easy bruising. Skin: Denies rash or itching. Past Family Social History Allergies: Coded Allergies: No Known Allergies (Verified Adverse Reaction, Unknown, 01/26/17) Past Medical History Tobacco abuse. Denies hypertension, hyperlipidemia, diabetes, and CAD. Past Surgical History Arthroscopic knee surgery area Reported Medications Reported Meds & Active Scripts Active Active Ordered Medications Current Medications Medications (Trade) Dose Ordered Sig/Annie Route Start Time Stop Time Status Last Admin (NS Flush) 2 ml UNSCH PRN IV FLUSH 01/26/17 21:45 (NS Flush) 2 ml BID IV FLUSH 01/27/17 09:00 (Tylenol) 500 mg Q4H PRN PO 01/26/17 21:45 (Taylor 7.5-325 Mg) 1 tab Q4H PRN PO 01/26/17 21:45 (Morphine Inj) 2 mg Q4H PRN IV PUSH 01/26/17 21:45 (Zofran Inj) 4 mg Q6H PRN IV PUSH 01/26/17 21:45 (Protonix) 40 mg DAILY PO 01/27/17 09:00 (Nitrostat Sl) 0.4 mg Q5M PRN SL 01/26/17 21:45 (Aspirin) 325 mg DAILY PO 01/27/17 09:00 Family History Denies family history of CAD. Social History Patient smokes one pack of cigarettes a day. Denies illicit drugs. Has occasional alcohol. Physical Exam Vital Signs Vital Signs Date Time Temp Pulse Resp B/P (MAP) Pulse Ox O2 Delivery O2 Flow Rate FiO2 01/27/17 08:01 98.0 64 21 133/75 (94) 98 01/27/17 03:20 98.1 62 18 145/77 (99) 99 01/27/17 01:15 97 01/26/17 23:00 97.9 61 18 131/67 (88) 99 01/26/17 22:14 01/26/17 21:30 66 18 135/55 (81) 99 Room Air 01/26/17 20:18 (99) 01/26/17 20:16 99 Room Air 01/26/17 19:51 98.6 74 16 143/77 (99) 99 Physical Exam GENERAL: This is a well-nourished, well-developed patient, in no apparent distress. Patient speaks in clear complete sentences. Patient is pleasant. HEENT: Head is atraumatic and normocephalic. Neck is supple without lymphadenopathy and trachea is midline. No JVD or carotid bruits. CARDIOVASCULAR: Regular rate and rhythm without murmurs, gallops, or rubs. RESPIRATORY: Clear to auscultation. Breath sounds equal bilaterally. No wheezes , rales, or rhonchi. Chest wall is nontender. No use of accessory muscles. GASTROINTESTINAL: Abdomen is nontender, nondistended. Abdomen soft. No obvious pulsatile mass or bruit. No CVA tenderness. Strong femoral pulses bilaterally. Normal bowel sounds in all quadrants. MUSCULOSKELETAL: Patient is moving upper and lower extremities freely. No calf tenderness or edema, no Homans sign. Strong pulses in upper and lower extremities. NEUROLOGICAL: Patient is alert and oriented. Cranial nerves 2-12 are grossly intact. No focal deficits and speech is clear. SKIN: No rash and turgor is normal. Laboratory Laboratory Tests Test 01/26/17 20:25 01/26/17 23:30 01/27/17 02:50 White Blood Count 7.7 Red Blood Count 4.20 Hemoglobin 12.7 Hematocrit 36.9 Mean Corpuscular Volume 87.7 Mean Corpuscular Hemoglobin 30.3 Mean Corpuscular Hemoglobin Concent 34.5 Red Cell Distribution Width 13.4 Platelet Count 276 Mean Platelet Volume 7.7 Neutrophils (%) (Auto) 57.7 Lymphocytes (%) (Auto) 31.1 Monocytes (%) (Auto) 6.6 Eosinophils (%) (Auto) 3.6 Basophils (%) (Auto) 1.0 Neutrophils # (Auto) 4.4 Lymphocytes # (Auto) 2.4 Monocytes # (Auto) 0.5 Eosinophils # (Auto) 0.3 Basophils # (Auto) 0.1 CBC Comment DIFF FINAL Differential Comment Prothrombin Time 10.0 Prothromb Time International Ratio 0.9 Activated Partial Thromboplast Time 22.6 Blood Urea Nitrogen 14 Creatinine 1.48 Random Glucose 113 Total Protein 7.0 Albumin 3.4 Calcium Level 8.9 Alkaline Phosphatase 78 Aspartate Amino Transf (AST/SGOT) 23 Alanine Aminotransferase (ALT/SGPT) 37 Total Bilirubin 0.2 Sodium Level 143 Potassium Level 3.4 Chloride Level 109 Carbon Dioxide Level 23.0 Anion Gap 11 Estimat Glomerular Filtration Rate 61 Magnesium Level 1.8 Total Creatine Kinase 139 124 119 Creatine Kinase MB 1.4 1.0 1.0 Troponin I LESS THAN 0.02 LESS THAN 0.02 LESS THAN 0.02 Lipase 239 Result Diagram: 01/26/17202401/26/172024 Imaging Last 48 hours Impressions Chest X-Ray 01/26/172002 Signed Impressions: Service Date/Time: Thursday, January 26, 2017 20:11 - CONCLUSION: Normal examination. Mo Nichols Jr., MD Course EKGs is sinus rhythm without significant ST segment depressions or elevations. Caprini VTE Risk Assessment Caprini VTE Risk Assessment: No/Low Risk (score <= 1) Caprini Risk Assessment Model Point Value = 1 Point Value = 2 Point Value = 3 Point Value = 5 Age 41-60 Minor surgery BMI > 25 kg/m2 Swollen legs Varicose veins or History of unexplained or recurrent spontaneous Oral contraceptives or hormone replacement Sepsis (< 1 month) Serious lung disease, including pneumonia (< 1 month) Abnormal pulmonary function Acute myocardial infarction Congestive heart failure (< 1 month) History of inflammatory bowel disease Medical patient at bed rest Age 61-74 Arthroscopic surgery Major open surgery (> 45 min) Laparoscopic surgery (> 45 min) Malignancy Confined to bed (> 72 hours) Immobilizing plaster cast Central venous access Age >= 75 History of VTE Family history of VTE Factor V Leiden Prothrombin [id number] Lupus anticoagulant Anticardiolipin antibodies Elevated serum homocysteine Heparin-induced thrombocytopenia Other congenital or acquired thrombophilia Stroke (< 1 month) Elective arthroplasty Hip, pelvis, or leg fracture Acute spinal cord injury (< 1 month) Prophylaxis Regimen Total Risk Factor Score Risk Level Prophylaxis Regimen 0-1 Low Early ambulation 2 Moderate Order ONE of the following: *Sequential Compression Device (SCD) *Heparin 5000 units SQ BID 3-4 Higher Order ONE of the following medications: *Heparin 5000 units SQ TID *Enoxaparin/Lovenox 40 mg SQ daily (WT < 150 kg, CrCl > 30 mL/min) *Enoxaparin/Lovenox 30 mg SQ daily (WT < 150 kg, CrCl > 10-29 mL/min) *Enoxaparin/Lovenox 30 mg SQ BID (WT < 150 kg, CrCl > 30 mL/min) AND/OR *Sequential Compression Device (SCD) 5 or more Highest Order ONE of the following medications: *Heparin 5000 units SQ TID (Preferred with Epidurals) *Enoxaparin/Lovenox 40 mg SQ daily (WT < 150 kg, CrCl > 30 mL/min) *Enoxaparin/Lovenox 30 mg SQ daily (WT < 150 kg, CrCl > 10-29 mL/min) *Enoxaparin/Lovenox 30 mg SQ BID (WT < 150 kg, CrCl > 30 mL/min) AND *Sequential Compression Device (SCD) Assessment and Plan Assessment and Plan * Chest pain: Patient has had serial cardiac enzymes and EKGs for ruling out purposes. He was seen by Dr. Alverto Abrams of cardiology and the chest and center. He denies chest discomfort as time. He will undergo a Matthew protocol ETT and if that is nonischemic he would then be discharged home with instructions to follow PCP. Return to ED for interval issues. * Tobacco abuse: Patient has been counseled on importance of smoking cessation. Patient is stable at this time. He is agreeable to this plan. Vinicius Menjivar Jan 27, 2017 10:47
--- NOTE | 2017-01-27 12:35 | EKG ---
Date Performed: 01/27/2017 Time Performed: 03:25:47 PTAGE: 51 years EKG: SINUS BRADYCARDIA NONSPECIFIC T-WAVE ABNORMALITY BORDERLINE ECG PREVIOUS TRACING : 01/26/2017 23.09 Since previous tracing, no significant change noted DOCTOR: Alverto Abrams Interpretating Date/Time 01/27/2017 12:33:49
--- NOTE | 2017-01-27 12:38 | EKG ---
Date Performed: 01/26/2017 Time Performed: 23:09:22 PTAGE: 51 years EKG: Sinus rhythm NORMAL ECG PREVIOUS TRACING : 01/26/2017 20.17 Since previous tracing, no significant change noted DOCTOR: Alverto Abrams Interpretating Date/Time 01/27/2017 12:36:48
--- NOTE | 2017-01-27 12:39 | EKG ---
Date Performed: 01/26/2017 Time Performed: 20:17:22 PTAGE: 51 years EKG: Sinus rhythm NONSPECIFIC T-WAVE ABNORMALITY BORDERLINE ECG PREVIOUS TRACING : 09/10/2016 23.01 Since previous tracing, no significant change noted DOCTOR: Alverto Abrams Interpretating Date/Time 01/27/2017 12:38:27
--- NOTE | 2017-01-27 12:45 | TR ---
Date Performed: 01/27/2017 Time Performed: 09:21:37 DOCTOR: Alverto Abrams DRUG LIST: CLINICAL HISTORY: REASON FOR TEST: REASON FOR ENDING: OBSERVATION: CONCLUSION: MARILYN PROTOCOL. NO CP. TEST STOPPED AFTER EXCEEDING GOAL HR SECONDARY TO SOB AND LEG FATIGUE.Maximum QD=452 % Max HR Achieved=88.0% Maximum EN=093/98 Total Exercise Time=8:00 COMMENTS: Patient exercised using the Marilyn protocol. No electrocardiographic changes were seen to suggest ischemia. Hemodynamic response to exercise was normal. No significant arrhythmia was prese nt.
== END 2017-01-27 11:48 | disposition home or self-care (01) ==
LOC: NEPE 19:48 → NEDA 21:43 → NEPHCDU 22:08
PROVIDERS: ADMIT Internal Medicine Interventional Cardiology; ATTEND Internal Medicine Interventional Cardiology
DX: R07.9 Chest pain, unspecified (principal); F17.210 Nicotine dependence, cigarettes, uncomplicated; R06.02 Shortness of breath; F31.9 Bipolar disorder, unspecified; F41.9 Anxiety disorder, unspecified; R01.1 Cardiac murmur, unspecified; R94.31 Abnormal electrocardiogram [ECG] [EKG]
CPT/HCPCS: 71010; 80053; 82550; 82552; 83690; 83735; 84484; 85025; 85610; 85730; 93005; 93017; 99285; G0378

== ENCOUNTER 2017-05-11 05:53 | Emergency (ER) | payer SELFPAY ==
[~2017-05-11] VITALS: Ht 167.6 cm; Wt 81.5 kg
[2017-05-11 05:53] VITALS: BP 145/76; PULSE 95; RESP 16; TEMP 99; O2SAT 98
--- NOTE | 2017-05-11 06:49 | PD ---
HPI Chief Complaint: Psychiatric Symptoms Time Seen by Provider: 06:29 Travel History International Travel<30 days: No Contact w/Intl Traveler<30days: No Traveled to known affect area: No History of Present Illness HPI 52-year-old black male presents emergency department on a voluntary basis for psychological evaluation. The patient states that he is going to kill his girlfriend and kill himself because he is tired of her spending all their money on crack cocaine. He does admit that he does use cocaine as well but states that he does not have a problem with it. The patient states "I am going to kill that bitch then kill myself". 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 Patient denies any toxic ingestions. He denies any medical complaints. PFSH Past Medical History Bipolar Disorder: Yes Anxiety: Yes Depression: Yes Heart Rhythm Problems: No Cardiac Catheterization: Yes Cardiovascular Problems: No High Cholesterol: Yes Chest Pain: Yes Congestive Heart Failure: No Diabetes: No Psychiatric: Yes Tetanus Vaccination: > 5 Years Influenza Vaccination: No Past Surgical History Coronary Artery Bypass Graft: No Other Surgery: Yes (ARTHROSCOPIC KNEE SURGERY 1991) Social History Alcohol Use: Yes (ocasionally) Tobacco Use: Yes (1 pck/day) Substance Use: Yes Allergies-Medications (Allergen,Severity, Reaction): Coded Allergies: No Known Allergies (Verified Adverse Reaction, Unknown, 01/26/17) Reported Meds & Prescriptions Reported Meds & Active Scripts Active No Active Prescriptions or Reported Medications Review of Systems General / Constitutional: No: Fever Eyes: No: Visual changes HENT: No: Headaches Cardiovascular: No: Chest Pain or Discomfort Respiratory: No: Shortness of Breath Gastrointestinal: No: Abdominal Pain Genitourinary: No: Dysuria Musculoskeletal: No: Pain Skin: No Rash Neurologic: No: Weakness Psychiatric: Positive: Suicidal Ideations, Mood Disorder, Substance Abuse, Homicidal Ideation, No: Anxiety, Depression, Disorder of Thought Endocrine: No: Polydipsia Hematologic/Lymphatic: No: Easy Bruising Physical Exam Narrative GENERAL: Well-nourished, well-developed patient. SKIN: Warm and dry. HEAD: Normocephalic and atraumatic. EYES: No scleral icterus. No injection or drainage. ENT: No nasal drainage noted. Mucous membranes pink. Airway patent. NECK: Supple, trachea midline. Moves head freely without obvious discomfort. CARDIOVASCULAR: Regular rate and rhythm without murmurs, gallops, or rubs. RESPIRATORY: Breath sounds equal bilaterally. No accessory muscle use. GASTROINTESTINAL: Abdomen soft, non-tender, nondistended. EXTREMITIES: No cyanosis or edema. BACK: Nontender without obvious deformity. No CVA tenderness. NEURO: Patient is alert and oriented. no sensorimotor deficits. Nonfocal. Normal speech. PSYCH: No delusions. No auditory or visual hallucinations. Data Data Last Documented VS Vital Signs Date Time Temp Pulse Resp B/P (MAP) Pulse Ox O2 Delivery O2 Flow Rate FiO2 05/11/17 06:17 18 05/11/17 05:53 99.0 95 145/76 (99) 98 Orders Orders Complete Blood Count With Diff (05/11/17 06:42) Comprehensive Metabolic Panel (05/11/17 06:42) Thyroid Stimulating Hormone (05/11/17 06:42) Psych Screen (05/11/17 06:42) Drug Screen, Random Urine (05/11/17 06:42) Alcohol (Ethanol) (05/11/17 06:42) MDM Medical Decision Making Medical Screen Exam Complete: Yes Emergency Medical Condition: Yes Medical Record Reviewed: Yes Differential Diagnosis MDM: High Differential diagnoses: Schizophrenia, schizoaffective disorder, bipolar, anxiety, depression, adjustment reaction, mood disorder NOS, ODD, depressive disorder NOS, dementia, dementia with agitation, psychosis NOS, substance induced mood disorder, DMDD, Asperger syndrome, infection,electrolyte abnormality, malingering. Narrative Course Mental health screening discussed with the patient. Psychiatric screen ordered. Patient has been medically cleared. This is medical clearance for psychiatric admission, substance abuse Diagnosis Primary Impression: Medical clearance for psychiatric admission Additional Impression: Substance abuse Scripts No Active Prescriptions or Reported Meds Condition: Stable Az Arroyo May 11, 2017 06:49
[2017-05-11 07:24] LABS: AUTOMATED NEUTROPHIL # 9.2 TH/MM3 (1.8-7.7); BASOPHIL # 0.1 TH/MM3 (0-0.2); BASOPHIL % 0.6 % (0.0-2.0); EOSINOPHIL # 0.1 TH/MM3 (0-0.4); HEMATOCRIT 45.4 % (39.0-51.0); HEMOGLOBIN 16.3 GM/DL (13.0-17.0); LYMPH % 14.1 % (9.0-44.0); LYMPHOCYTE # 1.6 TH/MM3 (1.0-4.8); MEAN CELL VOLUME 87.6 FL (80.0-100.0); MEAN CORPUSCULAR HEMOGLOBIN 31.4 PG (27.0-34.0); MEAN CORPUSCULAR HGB CONC 35.8 % (32.0-36.0); MEAN PLATELET VOLUME 7.9 FL (7.0-11.0); MONO % 4.8 % (0.0-8.0); MONOCYTE # 0.6 TH/MM3 (0-0.9); NEUT % 79.5 % (16.0-70.0); PLATELET COUNT 300 TH/MM3 (150-450); RED BLOOD COUNT 5.19 MIL/MM3 (4.50-5.90); RED CELL DISTRIBUTION WIDTH 13.4 % (11.6-17.2); WHITE BLOOD COUNT 11.6 TH/MM3 (4.0-11.0)
[2017-05-11 07:39] LABS: ALT (GPT) 26 U/L (12-78)
[2017-05-11 07:49] LABS: ALKALINE PHOSPHATASE 148 U/L (45-117); TOTAL BILIRUBIN ADULT 0.6 MG/DL (0.2-1.0); TOTAL PROTEIN 8.1 GM/DL (6.4-8.2)
[2017-05-11 07:51] LABS: ALBUMIN 4.1 GM/DL (3.4-5.0); AST (GOT) 32 U/L (15-37); BICARBONATE 27.4 MEQ/L (21.0-32.0); BLOOD UREA NITROGEN 12 MG/DL (7-18); CHLORIDE 104 MEQ/L (98-107); CREATININE 1.28 MG/DL (0.60-1.30); GLOMERULAR FILTRATION RATE 72 ML/MIN (>89); GLUCOSE,RANDOM 104 MG/DL (74-106); SODIUM (NA) 139 MEQ/L (136-145)
[2017-05-11 11:31] VITALS: BP 121/58; PULSE 71; TEMP 98.2; O2SAT 97
[2017-05-11 14:00] VITALS: BP 127/56; PULSE 78; RESP 20; O2SAT 97
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
[2017-05-11 18:15] VITALS: BP 147/77; PULSE 68; RESP 20
[2017-05-12 02:20] VITALS: BP 133/74; PULSE 62; RESP 17; O2SAT 100
[2017-05-12 06:51] VITALS: BP 145/72; PULSE 55; RESP 17; O2SAT 96
[2017-05-12 10:12] VITALS: BP 152/74; PULSE 60; RESP 16; O2SAT 97
--- NOTE | 2017-05-12 12:02 | PD ---
Physical Exam Time Seen by Provider: 11:[address] Velasquez has evaluated patient, lifted Johnston act and cleared the patient for discharge. Data Data Last Documented VS Vital Signs Date Time Temp Pulse Resp B/P (MAP) Pulse Ox O2 Delivery O2 Flow Rate FiO2 05/12/17 10:12 60 16 152/74 (100) 97 Room Air 05/11/17 11:31 98.2 Orders Orders Complete Blood Count With Diff (05/11/17 06:42) Comprehensive Metabolic Panel (05/11/17 06:42) Thyroid Stimulating Hormone (05/11/17 06:42) Psych Screen (05/11/17 06:42) Drug Screen, Random Urine (05/11/17 06:42) Alcohol (Ethanol) (05/11/17 06:42) Diet Regular Basic (05/11/17 Breakfast) Diet Regular Basic (05/11/17 Dinner) Diet Regular Basic (05/12/17 Breakfast) Diet Regular Basic (05/12/17 Lunch) Labs Laboratory Tests Test 05/11/17 06:45 05/11/17 11:30 White Blood Count 11.6 TH/MM3 Red Blood Count 5.19 MIL/MM3 Hemoglobin 16.3 GM/DL Hematocrit 45.4 % Mean Corpuscular Volume 87.6 FL Mean Corpuscular Hemoglobin 31.4 PG Mean Corpuscular Hemoglobin Concent 35.8 % Red Cell Distribution Width 13.4 % Platelet Count 300 TH/MM3 Mean Platelet Volume 7.9 FL Neutrophils (%) (Auto) 79.5 % Lymphocytes (%) (Auto) 14.1 % Monocytes (%) (Auto) 4.8 % Eosinophils (%) (Auto) 1.0 % Basophils (%) (Auto) 0.6 % Neutrophils # (Auto) 9.2 TH/MM3 Lymphocytes # (Auto) 1.6 TH/MM3 Monocytes # (Auto) 0.6 TH/MM3 Eosinophils # (Auto) 0.1 TH/MM3 Basophils # (Auto) 0.1 TH/MM3 CBC Comment DIFF FINAL Differential Comment Blood Urea Nitrogen 12 MG/DL Creatinine 1.28 MG/DL Random Glucose 104 MG/DL Total Protein 8.1 GM/DL Albumin 4.1 GM/DL Calcium Level 9.0 MG/DL Alkaline Phosphatase 148 U/L Aspartate Amino Transf (AST/SGOT) 32 U/L Alanine Aminotransferase (ALT/SGPT) 26 U/L Total Bilirubin 0.6 MG/DL Sodium Level 139 MEQ/L Potassium Level 3.9 MEQ/L Chloride Level 104 MEQ/L Carbon Dioxide Level 27.4 MEQ/L Anion Gap 8 MEQ/L Estimat Glomerular Filtration Rate 72 ML/MIN Thyroid Stimulating Hormone 3rd Gen 3.680 uIU/ML Ethyl Alcohol Level LESS THAN 3 MG/DL Urine Opiates Screen NEG Urine Barbiturates Screen NEG Urine Amphetamines Screen NEG Urine Benzodiazepines Screen NEG Urine Cocaine Screen POS Urine Cannabinoids Screen NEG MDM Supervised Visit with LILIANE: No Narrative Course Dr. Velasquez has evaluated patient, lifted Preston sadler and cleared the patient for discharge. Patient contracts safety. Denies suicidal or homicidal ideations. Patient will be provided community resource packet to [facility] for follow-up. Has friends and family for support. Patient was medically cleared by alternate provider prior to psych screening. Patient has been evaluated by psychiatry and and is now cleared for discharge. Diagnosis Primary Impression: Homicidal ideation Additional Impressions: Suicidal ideation Antisocial personality disorder in adult Referrals: [facility] (Out patient) [facility] Primary Care Physician Psychiatrist Eduardo SAD[facility] Patient Instructions: General Instructions, Suicide Prevention for Adults (ED) Additional Instruction: Contract safety to your self and others Follow-up with psychiatry Follow-up with primary care provider Follow-up with [facility] Saeed Return to the emergency department immediately with worsening of symptoms Med/Other Pt SpecificInfo: No Change to Meds, No Meds Exist/No RX given Scripts No Active Prescriptions or Reported Meds Disposition: 01 DISCHARGE HOME Condition: Stable Monica Yi May 12, 2017 12:01
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
== END 2017-05-12 13:11 | disposition home or self-care (01) ==
LOC: NEPD 05:53 → NEPJ 05-12 13:11
DX: R45.850 Homicidal ideations (principal); R45.851 Suicidal ideations; F60.2 Antisocial personality disorder; F31.9 Bipolar disorder, unspecified; F17.210 Nicotine dependence, cigarettes, uncomplicated; F14.10 Cocaine abuse, uncomplicated
CPT/HCPCS: 80053; 80307; 84443; 85025; 99284

== ENCOUNTER 2017-09-05 18:52 | Observation (INO) | payer SELFPAY ==
[~2017-09-05] VITALS: Ht 167.6 cm; Wt 80.0 kg
[2017-09-05 18:59] VITALS: BP 119/56; PULSE 83; RESP 17; TEMP 97.8; O2SAT 94
[2017-09-05] MEDS ORDERED: FAMOTIDINE 20 MG/2 ML VIAL IV PUSH SCH (19:15)
[2017-09-05] MEDS ORDERED: NITROGLYCERIN 2% OINT 1 GM PACKET TOPICAL ONE (19:15)
[2017-09-05] MEDS ORDERED: SODIUM CHLORID 0.9% 500 ML INJ 500 ML IV ONE (19:15)
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
[2017-09-05 19:27] VITALS: O2SAT 94
[2017-09-05] MEDS ORDERED: ONDANSETRON ODT 4 MG TAB PO ONE (19:30)
[2017-09-05 19:33] LABS: AUTOMATED NEUTROPHIL # 3.9 TH/MM3 (1.8-7.7); BASOPHIL # 0.1 TH/MM3 (0-0.2); BASOPHIL % 0.9 % (0.0-2.0); EOSINOPHIL # 0.1 TH/MM3 (0-0.4); EOSINOPHIL % 2.1 % (0.0-4.0); HEMATOCRIT 38.6 % (39.0-51.0); HEMOGLOBIN 13.1 GM/DL (13.0-17.0); LYMPH % 26.8 % (9.0-44.0); LYMPHOCYTE # 1.7 TH/MM3 (1.0-4.8); MEAN CELL VOLUME 90.7 FL (80.0-100.0); MEAN CORPUSCULAR HEMOGLOBIN 30.8 PG (27.0-34.0); MEAN PLATELET VOLUME 7.6 FL (7.0-11.0); MONO % 7.4 % (0.0-8.0); MONOCYTE # 0.5 TH/MM3 (0-0.9); NEUT % 62.8 % (16.0-70.0); PLATELET COUNT 261 TH/MM3 (150-450); RED BLOOD COUNT 4.26 MIL/MM3 (4.50-5.90); RED CELL DISTRIBUTION WIDTH 12.5 % (11.6-17.2); WHITE BLOOD COUNT 6.2 TH/MM3 (4.0-11.0)
--- NOTE | 2017-09-05 19:50 | RADRPT ---
EXAM DATE: 09/05/2017 7:47 PM EDT AGE/SEX: 52 years / Male INDICATIONS: Shortness of breath, dizziness and chest pain. CLINICAL DATA: This is the patient's initial encounter. Patient reports that signs and symptoms have been present for 2 days and indicates a pain score of 5/10. MEDICAL/SURGICAL HISTORY: None. None. [place] [facility] [place]. . FINDINGS: A single AP view of the chest demonstrates the lungs to be symmetrically aerated without evidence of mass, infiltrate or effusion. The cardiomediastinal contours are unremarkable. Osseous structures a re intact. CONCLUSION: No active disease. Electronically signed by: Az Santos MD 09/05/2017 7:49 PM EDT
[2017-09-05 20:01] LABS: ALBUMIN 3.7 GM/DL (3.4-5.0); AST (GOT) 30 U/L (15-37); BICARBONATE 20.2 MEQ/L (21.0-32.0); BLOOD UREA NITROGEN 13 MG/DL (7-18); CALCIUM 8.7 MG/DL (8.5-10.1); CHLORIDE 109 MEQ/L (98-107); CREATININE 1.07 MG/DL (0.60-1.30); GLOMERULAR FILTRATION RATE 88 ML/MIN (>89); GLUCOSE,RANDOM 144 MG/DL (74-106); MAGNESIUM 2.1 MG/DL (1.5-2.5); SODIUM (NA) 143 MEQ/L (136-145)
[2017-09-05 20:03] LABS: ALT (GPT) 29 U/L (12-78)
[2017-09-05 20:06] LABS: ALKALINE PHOSPHATASE 92 U/L (45-117); TOTAL BILIRUBIN ADULT 0.2 MG/DL (0.2-1.0); TOTAL PROTEIN 7.1 GM/DL (6.4-8.2); TROPONIN I LESS THAN 0.02 NG/ML (0.02-0.05)
[2017-09-05] MEDS ORDERED: SODIUM CHLOR 0.9% 1000 ML INJ 1,000 ML IV ONE (21:00)
[2017-09-05] MEDS ORDERED: IOHEXOL 350 MG/ML 10 ML VIAL (for RAD DIAG) IVCONTRAST ONE (21:00)
[2017-09-05 21:33] VITALS: BP 118/62; PULSE 90; RESP 16; O2SAT 98
--- NOTE | 2017-09-05 22:36 | RADRPT ---
EXAM DATE: 09/05/2017 10:25 PM EDT AGE/SEX: 52 years / Male INDICATIONS: Chest pain. CLINICAL DATA: This is the patient's initial encounter. Patient reports that signs and symptoms have been present for 1 day and indicates a pain score of 6/10. MEDICAL/SURGICAL HISTORY: Cardiovascular disease. Hypercholesterolemia. Substance abuse . RADIATION DOSE: 14.47 CTDI (mGy) COMPARISON: No prior exams available for comparison. TECHNIQUE: Volumetric scanning was performed using a multi-row detector CT scanner during bolus infu jose angel of 85 ml Omnipaque 350 (iohexol) nonionic water-soluble contrast as a cumulative dose for multi ple exams. The data was post processed with a variety of visualization algorithms including full volu me maximum intensity projection and sliding thin slab reformation. Using automated exposure control and adjustment of the mA and/or kV according to patient size, radiation dose was kept as low as reaso nably achievable to obtain optimal diagnostic quality images. FINDINGS: No lung consolidation. No pleural or pericardial effusion. Dependent atelectasis present in the lungs . No filling defects to suggest pulmonary embolic disease. 2.3 cm left adrenal adenoma. No acute find ings in the upper abdomen. CONCLUSION: 1. Negative for pulmonary embolus. Electronically signed by: Az Santos MD 09/05/2017 10:35 PM EDT
[2017-09-05] MEDS ORDERED: SODIUM CHLORIDE 0.9% FLUSH 10 ML FLUSH IV FLUSH PRN (22:45)
[2017-09-05] MEDS ORDERED: ACETAMINOPHEN 500 MG CPLT PO PRN (22:45)
[2017-09-05 23:25] LABS: BILIRUBIN, URINE NEG (NEG); BLOOD, URINE NEG (NEG); GLUCOSE,URINE NEG (NEG); HYALINE CAST, URINE 3 /lpf (RARE); KETONE, URINE NEG (NEG); MUCUS URINE FEW /lpf (OCC); NITRITE,URINE NEG (NEG); URINE COLOR YELLOW (YELLW/STRAW); URINE LEUKOCYTE ESTERASE NEG (NEG)
[2017-09-05 23:40] LABS: TROPONIN I LESS THAN 0.02 NG/ML (0.02-0.05)
[2017-09-06 00:13] VITALS: BP 132/74; PULSE 64; RESP 16; TEMP 98.3; O2SAT 98
[2017-09-06 02:07] LABS: TROPONIN I LESS THAN 0.02 NG/ML (0.02-0.05)
[2017-09-06 03:24] VITALS: BP 126/63; PULSE 58; RESP 16; TEMP 98.6; O2SAT 99
[2017-09-06 03:58] VITALS: PULSE 60
[2017-09-06 07:05] VITALS: PULSE 55
--- NOTE | 2017-09-06 07:38 | HHI.HP ---
HPI Primary Care Physician No Primary Care Physician Chief Complaint Chest pain History of Present Illness 52-year-old male current smoker and recent cocaine use presents the emergency room for further evaluation of chest pain. Onset yesterday afternoon. Location left anterior chest. Characterized as a "weight on my chest with sharp pains." No radiation. Duration minutes. Associated symptoms include dyspnea and diaphoresis. No nausea or vomiting. No known precipitating or relieving factors. Endorses similar pain few months ago, completing an exercise stress test. Review of Systems General: No fatigue, weakness, fever, chills, or recent illness. HEENT: No FRIEND, no nasal congestion or drainage CV: As stated above. No further chest discomfort since initial episode. RESP: No SOB, cough, wheeze, or history of asthma GI: No nausea, vomiting, or bowel changes. No change in appetite. : No dysuria, urgency, frequency EXT: No lower leg edema, history of bilateral knee pain MS: No discomfort, injury, recent trauma, or change in ROM NEURO: No dizziness, difficulty with balance, LOC, or motor/sensory deficits PSYCH: No anxiety, depression, or suicidal ideation SKIN: No rashes, no concerning lesions Past Family Social History Allergies: Coded Allergies: No Known Allergies (Verified Adverse Reaction, Unknown, 01/26/17) Past Medical History Tobacco use, substance abuse Past Surgical History Right arthroscopic knee surgery Reported Medications Reported Meds & Active Scripts Active No Active Prescriptions or Reported Medications Active Ordered Medications Current Medications Medications (Trade) Dose Ordered Sig/Annie Route Start Time Stop Time Status Last Admin (Pepcid Inj) 20 mg NOW IV PUSH 09/05/17 19:15 09/05/17 19:18 (NS Flush) 2 ml UNSCH PRN IV FLUSH 09/05/17 22:45 (NS Flush) 2 ml BID IV FLUSH 09/06/17 09:00 (Tylenol) 500 mg Q4H PRN PO 09/05/17 22:45 (Pepcid) 20 mg BID PO 09/06/17 09:00 Family History Noncontributory for early onset cardiovascular disease Social History No known coronary artery disease, hypertension, hyperlipidemia or diabetes. Endorses remote diagnosis of hypertension resolved with lifestyle modifications. Current 1 pack/daily smoker. Endorses occasional alcohol use. Endorses recent cocaine use. Endorses an active lifestyle works as a construction area manager. Past cardiac testing 01/27/17 Matthew protocol ETT-unremarkable, nonischemic, walked 8 minutes. Physical Exam Vital Signs Vital Signs Date Time Temp Pulse Resp B/P (MAP) Pulse Ox O2 Delivery O2 Flow Rate FiO2 09/06/17 03:58 60 09/06/17 03:24 98.6 58 16 126/63 (84) 99 09/06/17 00:13 98.3 64 16 132/74 (93) 98 09/05/17 23:20 09/05/17 21:33 90 16 118/62 (80) 98 Room Air 09/05/17 19:27 94 Room Air 09/05/17 19:05 16 09/05/17 18:59 97.8 83 17 119/56 (77) 94 Physical Exam GENERAL: Alert WN, WD, NAD, male HEAD: NC, AT CV: RRR, without murmur, rub, or gallop, no JVD, S1-S2 no S3-S4. Chest wall nontender with palpation. RESP: Clear lungs throughout bilateral, no crackles, wheeze, rhonchi, symmetrical chest rise, nonlabored, able to speak in full sentences ABD: Soft, NT, ND, no masses, positive bowel tones EXT: Pulses +2x4, no dependent edema MS: Normal tone x4 extremities, nontender, no obvious deformities, full range of motion NEURO: CN II through CN XII grossly intact, motor strength 5/5 PSYCH: A+O x3, flat affect, appropriate speech, mood agitated, questionable insight and judgment SKIN: Normal turgor, normal texture, multiple healed lesions bilateral lower extremities Laboratory Laboratory Tests Test 09/05/17 19:13 09/05/17 22:50 09/05/17 23:00 09/06/17 01:30 White Blood Count 6.2 Red Blood Count 4.26 Hemoglobin 13.1 Hematocrit 38.6 Mean Corpuscular Volume 90.7 Mean Corpuscular Hemoglobin 30.8 Mean Corpuscular Hemoglobin Concent 34.0 Red Cell Distribution Width 12.5 Platelet Count 261 Mean Platelet Volume 7.6 Neutrophils (%) (Auto) 62.8 Lymphocytes (%) (Auto) 26.8 Monocytes (%) (Auto) 7.4 Eosinophils (%) (Auto) 2.1 Basophils (%) (Auto) 0.9 Neutrophils # (Auto) 3.9 Lymphocytes # (Auto) 1.7 Monocytes # (Auto) 0.5 Eosinophils # (Auto) 0.1 Basophils # (Auto) 0.1 CBC Comment DIFF FINAL Differential Comment Prothrombin Time 10.0 Prothromb Time International Ratio 1.0 Activated Partial Thromboplast Time 20.3 Blood Urea Nitrogen 13 Creatinine 1.07 Random Glucose 144 Total Protein 7.1 Albumin 3.7 Calcium Level 8.7 Magnesium Level 2.1 Alkaline Phosphatase 92 Aspartate Amino Transf (AST/SGOT) 30 Alanine Aminotransferase (ALT/SGPT) 29 Total Bilirubin 0.2 Sodium Level 143 Potassium Level 3.4 Chloride Level 109 Carbon Dioxide Level 20.2 Anion Gap 14 Estimat Glomerular Filtration Rate 88 Total Creatine Kinase 367 298 284 Creatine Kinase MB 7.3 5.5 5.6 Creatine Kinase MB % 2.0 Troponin I LESS THAN 0.02 LESS THAN 0.02 LESS THAN 0.02 B-Type Natriuretic Peptide LESS THAN 2 Lipase 107 Urine Color YELLOW Urine Turbidity CLEAR Urine pH 5.0 Urine Specific [place] 1.023 Urine Protein NEG Urine Glucose (UA) NEG Urine Ketones NEG Urine Occult Blood NEG Urine Nitrite NEG Urine Bilirubin NEG Urine Urobilinogen LESS THAN 2 Urine Leukocyte Esterase NEG Urine WBC 1 Urine Hyaline Casts 3 Urine Mucus FEW Microscopic Urinalysis Comment CULT NOT INDICATED Urine Opiates Screen NEG Urine Barbiturates Screen NEG Urine Amphetamines Screen NEG Urine Benzodiazepines Screen NEG Urine Cocaine Screen POS Urine Cannabinoids Screen NEG Result Diagram: 09/05/17191209/05/171912 Imaging Last [address] Angiography 09/05/172053 Signed Impressions: CONCLUSION: 1. Negative for pulmonary embolus. Chest X-Ray 09/05/171907 Signed Impressions: CONCLUSION: No active disease. Course EKG Normal sinus rhythm, normal axis, no ST-T segment changes Caprini VTE Risk Assessment Caprini VTE Risk Assessment: No/Low Risk (score <= 1) Caprini Risk Assessment Model Point Value = 1 Point Value = 2 Point Value = 3 Point Value = 5 Age 41-60 Minor surgery BMI > 25 kg/m2 Swollen legs Varicose veins or History of unexplained or recurrent spontaneous Oral contraceptives or hormone replacement Sepsis (< 1 month) Serious lung disease, including pneumonia (< 1 month) Abnormal pulmonary function Acute myocardial infarction Congestive heart failure (< 1 month) History of inflammatory bowel disease Medical patient at bed rest Age 61-74 Arthroscopic surgery Major open surgery (> 45 min) Laparoscopic surgery (> 45 min) Malignancy Confined to bed (> 72 hours) Immobilizing plaster cast Central venous access Age >= 75 History of VTE Family history of VTE Factor V Leiden Prothrombin [id number] Lupus anticoagulant Anticardiolipin antibodies Elevated serum homocysteine Heparin-induced thrombocytopenia Other congenital or acquired thrombophilia Stroke (< 1 month) Elective arthroplasty Hip, pelvis, or leg fracture Acute spinal cord injury (< 1 month) Prophylaxis Regimen Total Risk Factor Score Risk Level Prophylaxis Regimen 0-1 Low Early ambulation 2 Moderate Order ONE of the following: *Sequential Compression Device (SCD) *Heparin 5000 units SQ BID 3-4 Higher Order ONE of the following medications: *Heparin 5000 units SQ TID *Enoxaparin/Lovenox 40 mg SQ daily (WT < 150 kg, CrCl > 30 mL/min) *Enoxaparin/Lovenox 30 mg SQ daily (WT < 150 kg, CrCl > 10-29 mL/min) *Enoxaparin/Lovenox 30 mg SQ BID (WT < 150 kg, CrCl > 30 mL/min) AND/OR *Sequential Compression Device (SCD) 5 or more Highest Order ONE of the following medications: *Heparin 5000 units SQ TID (Preferred with Epidurals) *Enoxaparin/Lovenox 40 mg SQ daily (WT < 150 kg, CrCl > 30 mL/min) *Enoxaparin/Lovenox 30 mg SQ daily (WT < 150 kg, CrCl > 10-29 mL/min) *Enoxaparin/Lovenox 30 mg SQ BID (WT < 150 kg, CrCl > 30 mL/min) AND *Sequential Compression Device (SCD) Assessment and Plan Assessment and Plan #1 Atypical chest pain-admitted chest pain center. ACS ruled out with 3 sets of EKGs and cardiac enzymes. Monitored overnight on telemetry. Seen and evaluated by Dr. Alverto Abrams. Proceed with exercise stress test this a.m. If unremarkable, discharge home with follow-up with PCP. He has been strongly encouraged and stressed importance of establishing with a primary care provider for routine yearly lab work and preventative medical care. Verbalizes understanding and agreeable to plan of care. #2 Tobacco use-strongly encouraged and stressed importance of tobacco cessation. Instructed to quit smoking. #3 Cocaine use-counseling on risk of cocaine use, risk of [place], and even discussed. Instructed not to continue use of cocaine. Chichi Jimenez JACKET CHANGER Sep 06, 2017 07:38
[2017-09-06 08:45] VITALS: BP 112/57; PULSE 54; RESP 16; TEMP 98.2; O2SAT 98
[2017-09-06] MEDS ORDERED: SODIUM CHLORIDE 0.9% FLUSH 10 ML FLUSH IV FLUSH SCH (09:00)
[2017-09-06] MEDS ORDERED: FAMOTIDINE 20 MG TAB PO SCH (09:00)
--- NOTE | 2017-09-06 11:00 | HHI.DCPOC ---
Discharge Care Plan Diagnosis: (1) Atypical chest pain (2) Tobacco abuse (3) Substance abuse Goals to Promote Your Health * To prevent worsening of your condition and complications * To maintain your health at the optimal level Directions to Meet Your Goals Take your medications as prescribed Follow your dietary instruction Follow activity as directed Keep your appointments as scheduled Take your immunizations and boosters as scheduled If your symptoms worsen call your PCP, if no PCP go to Urgent Care Center or Emergency Room Smoking is Dangerous to Your Health. Avoid second hand smoke Call the 24-hour hour crisis hotline for domestic abuse at Chichi Jimenez Sep 06, 2017 11:00
[2017-09-06] MEDS ORDERED: OMEP20TA93 PO (11:10)
--- NOTE | 2017-09-06 15:28 | EKG ---
Date Performed: 09/06/2017 Time Performed: 01:29:15 PTAGE: 52 years EKG: Sinus rhythm BORDERLINE ECG PREVIOUS TRACING : 09/05/2017 22.48 Since previous tracing, no significant change noted DOCTOR: Alverto Abrams Interpretating Date/Time 09/06/2017 15:26:54
--- NOTE | 2017-09-06 15:29 | EKG ---
Date Performed: 09/05/2017 Time Performed: 22:48:36 PTAGE: 52 years EKG: Sinus rhythm NORMAL ECG PREVIOUS TRACING : 09/05/2017 18.57 Since previous tracing, no significant change noted DOCTOR: Alverto Abrams Interpretating Date/Time 09/06/2017 15:27:33
--- NOTE | 2017-09-06 15:30 | EKG ---
Date Performed: 09/05/2017 Time Performed: 18:57:53 PTAGE: 52 years EKG: Sinus rhythm ABNORMAL ECG PREVIOUS TRACING : 01/27/2017 03.25 Since previous tracing, no significant change noted DOCTOR: Alverto Abrams Interpretating Date/Time 09/06/2017 15:28:22
--- NOTE | 2017-09-06 15:38 | TR ---
Date Performed: 09/06/2017 Time Performed: 10:07:38 DOCTOR: Alverto Abrams DRUG LIST: CLINICAL HISTORY: REASON FOR TEST: REASON FOR ENDING: OBSERVATION: CONCLUSION: Matthew protocol completed. Stopped sec to reaching target heart rate and leg fatigue. Maximum MO=416 Target HR Fgdizdgp=053.0% Maximum ZQ=704/76 Total Exercise Time=10:36. Hypertensive b p response. Great exercise tolerance. No ectopy. No st t segment changes, artifact intermittently and at peak. Sinus arrhythmia. Recovery quick and unremarkable. COMMENTS: Patient exercised using the Matthew protocol. No electrocardiographic changes were seen to suggest ischemia. Hemodynamic response to exercise was normal. No significant arrhythmia was prese nt.
== END 2017-09-06 12:18 | disposition home or self-care (01) ==
LOC: NEPC 18:52 → NEDA 21:42 → NEPFCDU 23:20
PROVIDERS: ADMIT Internal Medicine Interventional Cardiology; ATTEND Internal Medicine Interventional Cardiology
DX: R07.89 Other chest pain (principal); F17.210 Nicotine dependence, cigarettes, uncomplicated; F14.90 Cocaine use, unspecified, uncomplicated; R94.31 Abnormal electrocardiogram [ECG] [EKG]; E78.00 Pure hypercholesterolemia, unspecified; R06.02 Shortness of breath; R11.0 Nausea; R61 Generalized hyperhidrosis; R00.2 Palpitations; E78.5 Hyperlipidemia, unspecified
CPT/HCPCS: 71045; 71275; 80053; 80307; 81001; 82550; 82552; 83690; 83735; 83880; 84484; 85025; 85610; 85730; 93005; 93017; 96374; 99285; G0378; J7030; J7040; Q9967